=== PATIENT | female | born 1975 | race Caucasian/White ===

== ENCOUNTER → 2019-01-23 | Day surgery (SDC) | payer OTHER ==
[~2019-01-23] MED LIST: IV RINGERS,LACTATED 1000ML 1,000 ML IV SCH; LACT1CAP6 PO; LIDOCAINE 1% PF 2 ML VIAL. ID PRN; MIDAZOLAM HCL/PF 2 MG/2 ML VIAL. IV PRN; MULT1TAB52 PO; PROPOFOL 40 ML IV ONE; fentaNYL PF VIAL 100 MCG/2 ML VIAL IV PRN
[2019-01-23 15:36] VITALS: BP 101/64
[2019-01-24 06:16] LABS: U PREG PATIENT NEGATIVE (NEG)
== END | disposition home or self-care (01) ==
LOC: SURG 14:00
PROVIDERS: ATTEND Internal Medicine Gastroenterology
DX: K64.0 First degree hemorrhoids (principal); R19.4 Change in bowel habit; F32.9 Major depressive disorder, single episode, unspecified; Z82.49 Family history of ischemic heart disease and other diseases of the circulatory system; Z83.3 Family history of diabetes mellitus; Z79.899 Other long term (current) drug therapy; Z98.890 Other specified postprocedural states; Z98.84 Bariatric surgery status
CPT/HCPCS: 45378; 81025; J2704